=== PATIENT | male | born 1970 | race Caucasian/White ===

== ENCOUNTER 2018-04-09 20:04 | Emergency (ER) | payer MEDICARE, MEDICAID ==
[~2018-04-09] VITALS: Ht 185.4 cm; Wt 88.0 kg
[~2018-04-09 20:04] MED LIST: BENZ1TAB7 PO; CLON-527 PO; DULO-31 PO; PALI9TAB3 PO
[2018-04-09 20:17] VITALS: BP 149/100
== END 2018-04-09 22:40 | disposition left against medical advice (07) ==
LOC: ER 20:04
DX: F15.10 Other stimulant abuse, uncomplicated (principal); F19.90 Other psychoactive substance use, unspecified, uncomplicated; F41.9 Anxiety disorder, unspecified; Z98.890 Other specified postprocedural states; Z79.899 Other long term (current) drug therapy
CPT/HCPCS: 99281